=== PATIENT | female | born 1990 | race Two or more races ===

== ENCOUNTER 2024-04-20 04:11 | Emergency (ER) | payer BC, SELFPAY ==
[2024-04-20 04:11] VITALS: BP 134/84; PULSE 100; RESP 22; TEMP 36.6; O2SAT 97
--- NOTE | 2024-04-20 04:22 | XR_ITS ---
Examination: PA lateral chest 2 views Technique: Upright PA lateral chest 2 views Exam date and time: April 20, 2024 0500 hrs. Indications: Coughing today. Findings: Normal heart size. Lungs are clear. The osseous structures are intact Impression: No active disease
--- NOTE | 2024-04-20 04:26 | PD.EDRME ---
Rapid Medical Screening Exam RME Arrival date/time: 04/20/24 04:11 34-year-old female with past medical history of asthma presents emergency department complaining of shortness of breath and cough that is been ongoing for 3 days. Patient reports uses inhaler at home with no improvement. Chief Complaint: Shortness of Breath/Dyspnea Time Seen by Provider: 04/20/24 04:17 Vital signs: Vital Signs Temperature 97.9 F 04/20/24 04:11 Pulse Rate 100 04/20/24 04:11 Respiratory Rate 22 H 04/20/24 04:11 Blood Pressure 134/84 H 04/20/24 04:11 Pulse Oximetry (%) 97 04/20/24 04:11 Oxygen Delivery Method Room Air 04/20/24 04:11 Vital signs reviewed by provider: Yes
[2024-04-20] MEDS: predniSONE 20 MG TABLET 40 MG PO (04:35)
[2024-04-20 04:43] VITALS: PULSE 93
[2024-04-20] MEDS: ALBUTEROL RT 2.5 MG/0.5 ML NEBU 10 MG INH (04:43)
[2024-04-20 04:44] VITALS: PULSE 105; RESP 18; O2SAT 97
[2024-04-20] MEDS: IPRATROPIUM RT 0.5 MG/ 2.5 ML NEBU 1 MG INH (04:44)
--- NOTE | 2024-04-20 05:42 | EDNOTE_ITS ---
<Statement entered by Josee Dai MD - 04/26/24 17:47> As co-signing physician, I was present and available for consult prn. I concur with the plan and care as documented by the midlevel provider. ED SOB =RME/HPI General Chief Complaint: Shortness of Breath/Dyspnea Stated Complaint: DIFF BREATHING Time Seen by Provider: 04/20/24 04:17 Source: patient Arrival date/time: 04/20/24 04:11 34-year-old female with past medical history of asthma presents emergency department complaining of shortness of breath and cough that is been ongoing for 3 days. Patient reports uses inhaler at home with no improvement. Patient denies any fever, chills, nausea vomiting, or any other associated symptoms. Mode of arrival: ambulatory Limitations: no limitations RME / HPI RME / HPI Narrative: 04/20/24 04:11 34-year-old female with past medical history of asthma presents emergency department complaining of shortness of breath and cough that is been ongoing for 3 days. Patient reports uses inhaler at home with no improvement. Related Data Previous Rx's ?Medication ?Instructions ?Recorded albuterol sulfate 90 mcg/actuation 2 puff inhalation Q6H PRN 09/21/19 aerosol inhaler (Ventolin HFA) shortness of breath or wheezing #8.5 grams albuterol sulfate 90 mcg/actuation 2 puff inhalation Q6H PRN 04/20/24 aerosol inhaler (Ventolin HFA) shortness of breath or wheezing #6.7 grams prednisone 20 mg tablet 20 mg PO BID 3 days #6 tabs 04/20/24 Allergies Allergy/AdvReac Type Severity Reaction Status Date / Time No Known Allergies Allergy Verified 04/20/24 04:13 Review of Systems Review of Systems Systems Reviewed: All systems reviewed, normal except as documented Constitutional Constitutional: Reports system reviewed and no additional complaints, except as documented, Denies body ache(s), Denies chills and Denies fever(s) Eyes Eyes: Reports system reviewed and no additional complaints, except as documented and Denies change in vision ENT Ears, Nose, Mouth, and Throat: Reports system reviewed and no additional complaints, except as documented, Denies disequilibrium, Denies dizziness, Denies sore throat and Denies vertigo Cardiovascular Cardiovascular: Reports system reviewed and no additional complaints, except as documented, Denies chest pain and Reports dyspnea Respiratory Respiratory: Reports system reviewed and no additional complaints, except as documented, Denies chest congestion, Reports cough and Reports dyspnea Gastrointestinal Gastrointestinal: Reports system reviewed and no additional complaints, except as documented, Denies abdominal pain, Denies nausea and Denies vomiting Musculoskeletal Musculoskeletal: Reports system reviewed and no additional complaints, except as documented, Denies abnormal gait and Denies arthralgias Integumentary/Breasts Skin/Breast: Reports system reviewed and no additional complaints, except as documented, Denies erythema, Denies rash and Denies wounds Neurologic Neurologic: Reports system reviewed and no additional complaints, except as documented, Denies abnormal gait, Denies disequilibrium, Denies dizziness and Denies vertigo Past Medical History Past Medical History NEUROLOGIC: Negative Neurological Disorders or Seizures CARDIAC: Negative Cardiac Disorders or Congestive Heart Failure RESPIRATORY: Positive Asthma; Negative Chronic Obstructive Pulmonary Disease (COPD) (ASTHMA LAST USE OF INHALER 2014) GASTROINTESTINAL: Negative Gastrointestinal Disorders or Hepatitis GENITOURINARY: Negative Genitourinary Disorders or Renal Disease REPRODUCTIVE: Negative Previous Pregnancies MUSCULOSKELETAL: Negative Musculoskeletal Disorders ENDOCRINE: Negative Endocrine Disorders, Diabetes Mellitus Type 1 or Diabetes Mellitus Type 2 HEMATOLOGIC: Negative Blood Disorders OTHER HISTORY: Positive Chicken Pox; Negative Hospitalization, Autoimmune Disease, Shingles, Falls, Blood Transfusions, Blood Transfusion Reaction, Anesthesia Reactions, Chemotherapy, Radiation Therapy, MRSA, Measles, Mumps or Cancer Family History FAMILY HISTORY: Positive Family Cardiac Disorders (FATHER (HTN)) and Family Surgery (MOTHER,FATHER); Negative Family Psychiatric Problems, Family Respiratory Disorders, Family Gastrointestinal Problems, Family Cancer or Family Anesthesia Reaction Social History SMOKING STATUS: Never smoker ED Exam General Limitations: Present no limitations General appearance: Present alert and in no apparent distress Head Head exam: Present atraumatic Eye Eye exam: Present normal appearance, PERRL and EOMI ENT ENT exam: Present normal exam, normal oropharynx and mucous membranes moist Neck Neck exam: Present normal inspection, full ROM and trachea midline Chest Chest inspection: Present normal inspection and symmetric chest wall rise Respiratory Respiratory exam: Present normal lung sounds bilaterally and wheezes (Bilateral lower lobe inspiratory wheeze) Cardiovascular Cardiovascular exam: Present regular rate, normal rhythm and normal heart sounds Abdominal Exam Abdominal exam: Present soft and normal bowel sounds Extremities Exam Extremities exam: Present normal inspection and full ROM Back Exam Back exam: Present normal inspection and full ROM Neurological Exam Neurological exam: Present alert, oriented X3 and CN II-XII intact Psychiatric Psychiatric exam: Present normal affect and normal mood Skin Skin exam: Present warm, dry, intact and normal color Course Quality Measures none Orders Category Date Time Status Bedside COVID-19 Antigen Test NOW Care 04/20/24 04:22 Active Bedside Influenza A&B Antigen Test NOW Care 04/20/24 04:22 Completed XR chest 2V Stat Exams 04/20/24 04:22 Taken ALBUTEROL RT 0.5ml [Proventil Rt 0.5ml] Med 04/20/24 04:21 Discontinued 10 mg INH X1 ONE Ipratropium Meally Rt Makayla [Atrovent Rt Makayla] Med 04/20/24 04:21 Discontinued 1 mg INH X1 ONE Sodium Chloride Rt Makayla 0.9% [NS Rt Makayla 0.9%] Med 04/20/24 04:21 Active 3 ml INH PRN PRN predniSONE Med 04/20/24 04:23 Discontinued 40 mg PO X1 ONE Vital Signs Vital signs: Vital Signs Temperature 97.9 F 04/20/24 04:11 Pulse Rate 100 04/20/24 04:11 Respiratory Rate 22 H 04/20/24 04:11 Blood Pressure 134/84 H 04/20/24 04:11 Pulse Oximetry (%) 97 04/20/24 04:11 Oxygen Delivery Method Room Air 04/20/24 04:11 97% room air within normal limits Shortness of Breath / Dyspnea MDM Narrative MDM Narrative:: 34-year-old female with past medical history of asthma presents emergency department complaining of shortness of breath and cough that is been ongoing for 3 days. Patient reports uses inhaler at home with no improvement. Patient denies any fever, chills, nausea vomiting, or any other associated symptoms. Chest x-ray was unremarkable for any pneumonic infiltrates based on my interpretation. Patient had bilateral lower lobe inspiratory wheezes on auscultation that significantly improved after hour-long breathing treatment. Patient reports significant improvement after breathing treatments and oral steroids no visible respiratory distress or pursed lip breathing. Patient appears nontoxic and is hemodynamically stable. Patient discharged on steroids and inhaler and instructed to avoid asthma triggers and have close follow-up with primary care provider in 24 to 48 hours or return to emergency department for any worsening symptoms or as needed. Patient data External records reviewed:: [facility] previous records Clinical information provided by:: patient Social determinants that could affect healthcare access:: none Patient has the following chronic illnesses:: Asthma How is presenting disease/condition affected by chronic disease/condition?: exacerbated by Evaluation data The following diagnostics were reviewed and interpreted by me:: radiology exam(s) Lab and/or radiology exams considered but not ordered:: Ordered Interpretation Summary: Interpreted by me Medications / Prescriptions Medications or Prescriptions considered but not ordered:: Ordered Medication administrations:: Medication Administration History Sodium Chloride (Sodium Chloride Rt Makayla 0.9% 3 Ml Nebu) 3 ml INH PRN PRN PRN Reason: SOLN Stop: 05/20/24 04:20 Discontinued Medications Albuterol (Albuterol Rt 2.5 Mg/0.5 Ml Nebu) 10 mg INH X1 ONE Stop: 04/20/24 04:22 Last Admin: 04/20/24 04:43 Dose: 10 mg Documented By: NE Comments: scanner stop working Ipratropium Meally (Ipratropium Rt 0.5 Mg/ 2.5 Ml Nebu) 1 mg INH X1 ONE Stop: 04/20/24 04:22 Last Admin: 04/20/24 04:44 Dose: 1 mg Documented By: NE Comments: scanner stop working Prednisone (Prednisone 20 Mg Tablet) 40 mg PO X1 ONE Stop: 04/20/24 04:24 Last Admin: 04/20/24 04:35 Dose: 40 mg Documented By: CVL Given Consultations Consultation(s) initiated? (list below): No Diagnosis Shortness of Breath Differential Diagnosis: acute exacerbation of chronic obstructive airways disease, congestive heart failure, community acquired pneumonia, asthma with exacerbation and pulmonary embolism Most likely diagnosis given after review of the tests above:: Asthma with exacerbation Admission Indicated Admission indicated?: not indicated Admission Request Was there a request for admission?: No Disposition Plan Disposition Plan: Discharge Discharge Attestation Discharge Attestation: The patient and all family members were given an opportunity to ask questions and understood the discharge instructions. Discharge instructions specifically effects, indications for sooner follow up or return to the emergency department, and the expected course of current diagnosis. Patient condition: Stable Discharge Plan Plan Patient Disposition: HOME (Self Care) Disposition Comment: Stable Prescriptions/Referrals Prescriptions/Med Rec: New albuterol sulfate [Ventolin HFA] 90 mcg/actuation HFA aerosol inhaler 2 puff inhalation Q6H PRN (Reason: shortness of breath or wheezing) Qty: 6.7 0RF prednisone 20 mg tablet 20 mg PO BID 3 Days Qty: 6 0RF Taper: Prednisone Taper 20 mg DAILY for 2 Days and 0 Hour 10 mg DAILY for 2 Days and 0 Hour 5 mg DAILY for 7 Days and 0 Hour No Action albuterol sulfate [Ventolin HFA] 90 mcg/actuation HFA aerosol inhaler 2 puff INH Q6H PRN (Reason: shortness of breath or wheezing) Qty: 8.5 0RF Problem List Clinical Impression: Acute asthma exacerbation Patient/Caregiver Discharge Instructions Discharge Activity: activity as tolerated Education Materials: Asthma Action Plan, Asthma Medicine, Asthma Trigger Checklist, Asthma Additional Instructions: Take medication as prescribed. Close follow-up with primary care provider in 24 to 48 hours. Return to emergency department for any worsening symptoms or as needed. Print Language: Swazi Stand Alone Forms: [employer] Award Info., Patient Portal Info Letter PA/[facility] OFFICER Supervising Physician PA/[facility] OFFICER Supervising Physician: Dr. Dai
[2024-04-20 05:53] VITALS: PULSE 105; RESP 18; O2SAT 97
== END 2024-04-20 05:54 | disposition home or self-care (01) ==
LOC: SERX 07:09
PROVIDERS: Emergency Provider Emergency Medicine
DX: J45.901 Unspecified asthma with (acute) exacerbation (principal)
CPT/HCPCS: 71046; 87400; 87811; 94644; 99283; J7512

== ENCOUNTER → 2025-02-14 | Outpatient (CLI) | payer BC, SELFPAY ==
--- NOTE | 2025-02-14 | XR_ITS ---
Examination: Lumbar spine, 5 views Technique: Lumbar spine AP, lateral, coned lateral lower lumbar spine, bilateral obliques 5 views Exam date and time: February 14, 2025, 12:38 PM INDICATIONS: Low back pain beginning 2 months ago. FINDINGS: Mild osteopenia. No lumbar fracture Minimal lumbar spondylosis No significant lumbar disc narrowing IMPRESSION: No lumbar fracture No significant lumbar disc narrowing
== END | disposition home or self-care (01) ==
LOC: CDIM 12:24
PROVIDERS: PCP Nurse Practitioner Family; Referring Provider Chiropractor; Visit Provider Chiropractor
DX: M99.03 Segmental and somatic dysfunction of lumbar region (principal); M54.50 Low back pain, unspecified
CPT/HCPCS: 72110